=== PATIENT | female | born 1995 | race Caucasian/White ===

== ENCOUNTER 2025-02-12 11:09 | Outpatient (CLI) | payer BC, MEDICAID, SELFPAY ==
[2025-02-12 11:14] VITALS: BP 119/77; PULSE 61
[2025-02-12 11:15] VITALS: RESP 15; BMI 27.2
[2025-02-12 11:29] VITALS: BP 103/71; PULSE 73
[2025-02-12 11:41] VITALS: BP 103/71; PULSE 73; RESP 15
== END 2025-02-12 11:41 | disposition home or self-care (01) ==
LOC: OPOB 11:09 → OBGYN 11:11
PROVIDERS: Visit Provider Family Medicine
DX: O36.8190 Decreased fetal movements, unspecified trimester, not applicable or unspecified (principal); Z3A.00 Weeks of gestation of pregnancy not specified
CPT/HCPCS: 59025; 99211

== ENCOUNTER 2025-02-14 19:10 | Inpatient (IN) | payer BC, MEDICAID, SELFPAY ==
[2025-02-14] VITALS (9 sets, daily range): BP systolic 107–136; BP diastolic 61–80; PULSE 68–87; RESP 16–18; TEMP 36.7–36.8
[2025-02-14 19:39] LABS: Hematocrit 37.9 % (36-47); Hemoglobin 13.40 g/dL (11.27-16.99); Mean Corpuscular HGB Conc 35.4 g/dL (30-55); Mean Corpuscular Hemoglobin 32.3 pg (27-33); Mean Corpuscular Volume 91.3 fl (85-98); Nucleated Red Blood Cells % 0 %; Platelet Count 277 10^3/cmm (157-399); Red Blood Count 4.15 10^6/uL (3.85-5.65); White Blood Count 21.29 10^3/uL (3.29-11.43)
[2025-02-15] VITALS (25 sets, daily range): BP systolic 91–134; BP diastolic 54–81; PULSE 64–110; RESP 15–18; TEMP 36.6–37.1; O2SAT 97–99
--- NOTE | 2025-02-15 05:18 | PM.OPHPUD ---
Labor & Delivery H&P Update Date of Procedure: February 15, 2025 Date H&P Performed: 02/13/25 Changes to previous documentation: The patient demonstrates cervical change with her cervix being 5 cm dilated Admission Diagnosis: 29-year-old 1 para 0 at 39 weeks estimated gestational age in active labor Planned procedure: Spontaneous vaginal delivery Other information: The patient is a 39-week female woman who presents to the hospital active labor. Her membranes have been intact. She has been having consistent contractions. She wants to have a with minimal intervention. We have had good discussions in the office So that we both have a good understanding of what her expectations are. Her has been otherwise unremarkable.Her blood type was B+. Her antibody screen was negative. Her GBS screen was negative. She passed her glucose screen. She is rubella immune. The remainder of her infectious disease profile is within normal limits. Related Problem List Diagnoses 1. 39 weeks gestation of : 2. Active labor: A&P Assessment and plan 1. 39 weeks gestation of : Anticipate routine labor and vaginal delivery. Once again, the patient wants minimal intervention, and will we will Respect her wishes unless there is a time when the health of her the baby becomes an issue. Status: Acute 2. Active labor: Status: Acute PDMP PDMP Reviewed: Not Reviewed
[2025-02-15] MEDS: fentaNYL 50 mcg/mL INJ 2mL IVP ×2 (11:47→18:08)
[2025-02-15] MEDS: oxytocin 30 UNIT/500 ML BAG IV (17:00)
[2025-02-15] MEDS: ondansetron 2 mg/ML SDV 2 mL 4 MG IVP (17:20)
--- NOTE | 2025-02-15 18:01 | P.PN_ITS ---
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 She refused having her membranes ruptured earlier in the night, but ultimately decided to let us rupture membranes earlier today. She also refused multiple checks during the night. She refused Pitocin. She does not want any pain control. She ultimately said she would be willing to consider some fentanyl. I made it clear that I would prefer to manage things differently, but as long as the baby had healthy appearing heart tones, I was going to be flexible because I knew they had strong feelings about trying to keep the labor as natural as possible.. After clinic today, I went and spoke with the patient and her . I made them aware that due to the minimal change of cervix since last night, that she would probably end up having a section. I told her we could try Pitocin to see if it would work and help her cervix to respond better. I told her that even with the Pitocin that is probable that she would need a in order to help them to have appropriate expectations. I also told them that I would be very happy if she had a pending vaginal delivery at this point and that we would have to reassess whether we can consider pushing after 2 hours with Pitocin. Her was frustrated that I had not done more to intervene earlier. I share with him all of the things that we recommended earlier and that they had refused. He felt the recommendations had not been strong enough. I let him know that if I had known that that was what he wanted to me to do, I would have been more bold, but I did not make them aware of my recommendations, and they did not ask for any clarification, they just said no. Labor: Station: 0 Amniotic Membrane Status: Ruptured Monitor Mode: External Contraction Pattern: Regular Vitals/I&O/Wt Last Vital Signs Temp 98.7 F 02/15/25 09:00 Pulse 76 02/15/25 08:51 Resp 16 02/15/25 11:47 BP 118/65 02/15/25 08:51 O2 Del Method Room Air 02/15/25 09:00 02/15/25 02/15/25 02/15/25 06:59 14:59 22:59 Intake Total 1000 / 1000 Balance 1000 / 1000 Weight last 48 hrs Weight 172 lb Physical Exam 2 Narrative: The patient is clearly uncomfortable and in labor. Otherwise she appears to be doing well. Const: COMMON NORMALS: patient oriented x3 and alert HENMT: COMMON NORMALS: moist oral mucous membranes HEAD & SCALP: normal to inspection Chest: COMMONS NORMALS: normal inspection of the chest Resp: COMMON NORMALS: clear to auscultation bilaterally AUSCULTATION: clear to auscultation bilaterally Cardio: COMMON NORMALS: regular rate and regular rhythm RATE: regular rate RHYTHM: regular rhythm GI: INSPECTION: Yes normal to inspection and Yes other (Gravid) : OTHER: Cervix is 7 8 cm dilated. It is not flexible. Extremity: COMMON NORMALS: normal to inspection GENERAL: Yes edema (Trace) Neuro: COMMON NORMALS: patient oriented x3, moves all extremities and no sensory deficits noted SENSORIUM/ORIENTATION: Yes alert Psych: COMMON NORMALS: mental status grossly normal Skin: COMMON NORMALS: no rashes or lesions noted GENERAL SKIN EXAM: no rashes or lesions noted Data 02/16/25 08:54 A&P Assessment and plan 1. 39 weeks gestation of : We are going to try Pitocin for 2 hours. If we do not see a change in her cervix, we we will recommend we proceed with a section. She has been at 8 to 9 cm for well over 12 hours. 2. Active labor: 3. Failure to progress in labor: After trying for 2 hours, the cervix is actually less dilated and less flexible. We discussed options, and I recommended the standard proceed with a section. We discussed the risk of bleeding, infection, and damage to intra- abdominal organs including bowel and bladder. We discussed in details all the parts of the and possible concerns. The patient and her had no further questions and they wish to proceed. PDMP PDMP Reviewed: Last Reviewed 02/17/25 12:37 EDT by Gm Boone MD Attestations 2 Medical Necessity Statement*: To progress in labor. Coding Level of Care Code Acute Code for Chg Fwd Diagnoses 39 weeks gestation of Z3A.39 Active labor Failure to progress in labor O62.2
[2025-02-15] MEDS: metoclopramide 5 mg/mL SDV 2 mL 10 MG IVP (19:46)
--- NOTE | 2025-02-15 19:55 | ANES.PREANE2 ---
Pre-Anesthetic Assessment Height/Weight: Height 1.7 m Weight 78.018 kg Temp Pulse Resp BP O2 Del Method 98.7 F 64 15 110/63 Room Air 02/15/25 09:00 02/15/25 18:14 02/15/25 18:08 02/15/25 18:14 02/15/25 09:00 Preop Diagnosis: Failure to progress Was Beta Мария taken within 24 hours: N/A Was Clonidine taken within 24 hours: N/A Social No alcohol Exam alert, oriented x 3, clear to auscultation bilaterally and regular rate & rhythm Airway Submandibular: within normal limits Cervical ROM: within normal limits Mallampati: Class II Dentition: full History/ROS No significant history except as noted and No significant complaints Pulmonary None reported CV/HEM None reported None reported Hepatic None reported GI None reported Metabolic None reported Musc/skel None reported Neuropsych None reported Anesthetic Plan ASA status: 2 Anesthesia: Anesthesia Evaluation and Regional (specify below) Other: SAB Risk of > 500 ml blood loss (7ml/kg in children): No Medications/Allergies Home Medications ?Medication ?Instructions ?Recorded ?Confirmed ?Last Taken ?Type vit with calcium-iron 1 tab PO DAILY 02/14/25 02/14/25 Unknown History fum-folic acid 60 mg-0.8 mg tablet Allergies Allergy/AdvReac Type Severity Reaction Status Date / Time No Known Allergies Allergy Verified 02/14/25 18:55 Current Medications Generic Name Dose Route Start Last Admin Trade Name Freq PRN Reason Stop Dose Admin Fentanyl 25 - 100 mcg 02/14/25 19:31 02/15/25 18:08 Fentanyl 50 Mcg/Ml Inj 2ml IVP 25 mcg Q1H PRN Administration SEVERE PAIN Dextrose/Lactated Ringer's 1,000 mls @ 125 mls/hr 02/14/25 19:45 02/15/25 16:54 Dextrose 5%-Lactated Ringers IV 125 mls/hr .Q8H CRISTY Administration Oxytocin 30 unit in 500 mls @ 1 mls/hr 02/15/25 17:15 02/15/25 18:51 Pitocin IV 7 milliunit/min .Q24H CRISTY 7 mls/hr Protocol Titration 1 MILLIUNIT/MIN Ondansetron HCl 4 mg 02/14/25 19:31 02/15/25 17:20 Ondansetron 2 Mg/Ml Sdv 2 Ml IVP 4 mg Q4H PRN Administration NAUSEA AND VOMITING PFSH Anesthesia Female Reproductive History : 1 Data Anesthesia 02/14/25 19:15 Short CBC 02/14/25 Range/Units 19:15 WBC 21.29 H (3.29-11.43) 10^3/uL Hgb 13.40 (11.27-16.99) g/dL Hct 37.9 (36-47) % MCV 91.3 (85-98) fl Plt Count 277 (157-399) 10^3/cmm Neut % (Auto) 92.0 % Neut # (Auto) 19.57 H (1.8-7.7) 10^3/uL Blood Bank 02/14/25 19:15 Blood Type B Positive Rho(D) Type Rh positive Antibody Screen Negative
--- NOTE | 2025-02-15 21:06 | P.OP_ITS ---
Operative Report Date of procedure: February 15, 2025 Pre-op diagnosis: 29-year-old 1 at 39 weeks estimated gestational age with failure to progress. Post-op diagnosis: Status post low-transverse section Procedure done: Low-transverse section Specimens removed/disposition: 1. Male infant with a weight of 7 pounds 14 ounces and Apgars of 8 and 9 2. Placenta with a three-vessel cord delivered intact Surgeon: Gm Boone MD Anesthesia: Spinal Complications: None Procedure: The patient was brought back to the operating room where she was prepped and draped in usual sterile fashion. Anesthesia was found to be adequate. A lower transverse skin incision was then made with a #10 blade. I then dissected down to the underlying subcutaneous tissue until arriving at the prerectal fascia. The fascia was then nicked with the scalpel bilaterally. The fascial incisions were then carried laterally with Benjamin scissors. Attention was then turned to the superior aspect of the incision which was grasped with kochers and tented up away from the underlying rectus abdominis muscles. The muscles were then dissected away from the fascia manually, and later with Benjamin scissors. Attention was then turned to the inferior aspect of the incision, and the fascia was dissected away from the underlying muscle in similar fashion. The rectus abdominis muscles were then spread manually. The peritoneum was entered manually. Excellent visualization of the uterus was noted. A lower transverse uterine incision was then made with a #10 blade. Upon arriving at the intrauterine cavity, the uterine incision was then extended manually. The infant was noted to be in vertex position. The baby was delivered without difficulty and placed on the abdomen.. After delivery of the head, the mouth and nose were suctioned at the site of the incision. There was no meconium. There was no nuchal cord. The cord was cut and clamped. The baby was then handed to the waiting nurse. The placenta was removed intact. The uterus was externalized. The intrauterine cavity was cleansed of any remaining debris. The uterine incision was reapproximated in 2 layers. The first layer was performed with 0 Vicryl in a running locked stitch. The second layer was an imbricating stitch also using 0 Vicryl. The uterus was replaced into the abdome n. The peritoneum was then irrigated with warm saline. I reexamined the uterine incision and found it to be hemostatic. The rectus abdominis muscles were then reapproximated using 0 Vicryl in a running stitch. The fascia was then reapproximated using 0 Vicryl in running stitch. The subcutaneous tissue was reapproximated using 0 Vicryl in a running stitch. The skin was reapproximated using heath. A sterile dressing was placed. All counts were correct x2. Both the mother and baby were in stable condition.
[2025-02-16] VITALS (7 sets, daily range): BP systolic 84–106; BP diastolic 50–68; PULSE 68–82; RESP 14–16; TEMP 36.8–36.9
--- NOTE | 2025-02-16 04:09 | PC.NURSE ---
Patient did not get switched over in the system to her new room so her vitals did not flow over. During roundings, vitals were WNL.
[2025-02-16 09:02] LABS: Hematocrit 29.0 % (36-47); Hemoglobin 9.90 g/dL (11.27-16.99); Mean Corpuscular HGB Conc 34.1 g/dL (30-55); Mean Corpuscular Hemoglobin 32.5 pg (27-33); Mean Corpuscular Volume 95.1 fl (85-98); Platelet Count 184 10^3/cmm (157-399); Red Blood Count 3.05 10^6/uL (3.85-5.65); White Blood Count 15.64 10^3/uL (3.29-11.43)
[2025-02-16] MEDS: HYDROcodone-acetaminophen 5-325 mg Tablet PO ×3 (12:40→23:41)
--- NOTE | 2025-02-16 13:11 | P.PN_ITS ---
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 Her bleeding has been within normal limits. Her pain has been well-controlled. There have been no concerns. Labor: Station: 0 Amniotic Membrane Status: Ruptured Monitor Mode: External Contraction Pattern: Regular Vitals/I&O/Wt Last Vital Signs Temp 98.3 F 02/16/25 10:34 Pulse 73 02/16/25 10:34 Resp 16 02/16/25 10:34 BP 100/63 02/16/25 10:34 Pulse Ox 97 02/15/25 21:30 O2 Del Method Room Air 02/15/25 23:30 02/15/25 02/16/25 02/16/25 22:59 06:59 14:59 Intake Total 1204.583 / 1204.583 Output Total 900 / 900 255 / 1155 Balance 304.583 / 304.583 -255 / 49.583 Weight last 48 hrs Weight 172 lb Physical Exam 2 Narrative: She is in no acute distress Lungs are clear auscultation bilaterally Her heart has a regular rate and rhythm Her fundus is below the umbilicus and firm Her dressing is clean, dry and intact Her extremities have trace edema Urinary Catheter Management: Baron: Cath Placed During This Visit: yes Urinary Catheter Date of Insertion: 02/15/25 Urinary Catheter Time of Insertion: 20:05 Data 02/16/25 08:54 A&P Assessment and plan 1. Status post : 2. 39 weeks gestation of : PDMP PDMP Reviewed: Last Reviewed 02/17/25 12:37 EDT by Gm Boone MD Attestations 2 Medical Necessity Statement*: Routine post care Coding Level of Care Code Acute Code for Chg Fwd Diagnoses Status post Z98.891 39 weeks gestation of Z3A.39
[2025-02-17 04:11] VITALS: BP 95/53; PULSE 66; TEMP 36.9
[2025-02-17] MEDS: HYDROcodone-acetaminophen 5-325 mg Tablet PO ×2 (06:49→13:52)
[2025-02-17] MEDS: PRENATAL VIT NO.130/IRON/FOLIC 1 EACH TABLET PO (10:00)
--- NOTE | 2025-02-17 11:43 | P.DS_ITS ---
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 39 weeks gestation of : 2. Active labor: 3. Failure to progress in labor: Reason for Visit Reason for Visit: ctxxx Hospital Course Hospital Course The patient presented to the hospital in active labor. She had a very specific plan. And we did her best to try and accommodate her plan was still doing the right thing for her and her baby. During her first night in the hospital she progressed to 8 cm. We then elected to rupture membranes. From that point forward, she made very little change. She did 8 cm for over 12 hours. We then elected to put her on Pitocin for couple of hours with no benefit and cervix. As result we proceeded with a section. The C- section was unremarkable. She did have 1 small tear in the right side of the uterine incision. I discussed the significance of this with the parents, especially regards to future versus . I made it very clear that any future would be very risky. Her course was unremarkable. Her pain was well-controlled. She breast-fed well. She passed gas. Her diet was advanced and tolerated well. Information Peripartum Data: Delivery Method: Physical Exam Narrative: She is in no acute distress Lungs are clear auscultation bilaterally Her heart has a regular rate and rhythm Her fundus is below the umbilicus and firm Her dressing is clean, dry and intact Her extremities have trace edema Urinary Catheter Management: Baron: Cath Placed During This Visit: yes, but has since been removed by the nurse Reason for Continuing Indwelling Catheter: Decision to DC Catheter Urinary Catheter Date of Insertion: 02/15/25 Urinary Catheter Time of Insertion: 20:05 Date Urinary Catheter Removed: 02/16/25 Time Urinary Catheter Discontinued: 10:15 Discharge Data Studies Completed and Pending Laboratory Results WBC 15.64 10^3/uL (3.29-11.43) H 02/16/25 08:54 RBC 3.05 10^6/uL (3.85-5.65) L 02/16/25 08:54 Hgb 9.90 g/dL (11.27-16.99) L 02/16/25 08:54 Hct 29.0 % (36-47) L 02/16/25 08:54 MCV 95.1 fl (85-98) 02/16/25 08:54 MCH 32.5 pg (27-33) 02/16/25 08:54 MCHC 34.1 g/dL (30-55) 02/16/25 08:54 RDW 11.6 % (12.1-15.1) L 02/16/25 08:54 Plt Count 184 10^3/cmm (157-399) 02/16/25 08:54 MPV 11.3 fL (7.4-10.4) H 02/16/25 08:54 Neut % (Auto) 92.0 % 02/14/25 19:15 Lymph % (Auto) 5.7 % 02/14/25 19:15 Morrison % (Auto) 1.5 % 02/14/25 19:15 Eos % (Auto) 0.0 % 02/14/25 19:15 Baso % (Auto) 0.1 % 02/14/25 19:15 Neut # (Auto) 19.57 10^3/uL (1.8-7.7) H 02/14/25 19:15 Lymph # (Auto) 1.2 10^3/uL (0.8-4.8) 02/14/25 19:15 Morrison # (Auto) 0.3 10^3/uL (0.2-0.9) 02/14/25 19:15 Eos # (Auto) 0.0 10^3/uL (0.0-0.8) 02/14/25 19:15 Baso # (Auto) 0.0 10^3/uL (0.0-0.1) 02/14/25 19:15 Nucleated RBC % (auto) 0 % 02/14/25 19:15 Nucleated RBCs # 0.0 /100WBC 02/14/25 19:15 Blood Type B Positive 02/14/25 19:15 Rho(D) Type Rh positive 02/14/25 19:15 Antibody Screen Negative 02/14/25 19:15 Vitals Last Vital Signs Temp 98.4 F 02/17/25 04:11 Pulse 66 02/17/25 04:11 Resp 14 02/16/25 14:48 BP 95/53 02/17/25 04:11 Pulse Ox 97 02/15/25 21:30 O2 Del Method Room Air 02/15/25 23:30 Results Labs OB ([facility]): Blood Type B Positive 02/14/25 Antibody Screen Negative 02/14/25 Hct, (36-47) 29.0 % L 02/16/25 Hgb, (11.27-16.99) 9.90 g/dL L 02/16/25 Rho(D) Type Rh positive 02/14/25 Plt Count, (157-399) 184 10^3/cmm 02/16/25 Discharge Plan Discharge Patient Disposition: Home Condition: Stable Prescriptions: New ibuprofen 800 mg Tablet 800 mg PO TID Qty: 45 0RF docusate sodium 100 mg Capsule 100 mg PO BID Qty: 14 0RF oxycodone-acetaminophen [Percocet] 5-325 mg tablet 1 tab PO Q6H PRN (Reason: pain) Qty: 28 0RF Continued vit-iron fum-folic ac 60-0.8 mg Tablet 1 tab PO DAILY Discharge Order = DC NOW: Discharge Order (Routine); Ordered 02/17/25 Ordered By: Gm Boone Referrals: Gm Boone MD [Physician, Family Practice] - 4-7 days Discharge Diet: Usual diet Discharge Activity: Limit activity as instructed Patient Instructions: Opioid Safety, Patient Portal & Oniel Instructions Discharge Attestations 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
[2025-02-17 13:41] VITALS: BP 115/64; PULSE 65; RESP 16; TEMP 36.7; O2SAT 98
== END 2025-02-17 13:54 | disposition home or self-care (01) | DRG 788 ==
LOC: OPOB 19:11 → OBGYN 19:11
PROVIDERS: Admitting Provider Family Medicine; Visit Provider Family Medicine
PROC: 10D00Z1 Extraction of Products of Conception, Low, Open Approach (ICD-10-PCS; CPT 59514; principal; 2025-02-15 20:00)
DX: O62.2 Other uterine inertia (principal); Z3A.39 39 weeks gestation of pregnancy; Z37.0 Single live birth
CPT/HCPCS: 36415; 51702; 59025; 59409; 85025; 85027; 86850; 86900; 96374; 99211; J1885; J2274; J2405; J2590; J2765; J3010; J3490; J7121; J9999